=== PATIENT | female | born 1950 | race Caucasian/White ===

== ENCOUNTER 2017-03-02 08:24 | Outpatient (CLI) | payer OTHER ==
--- NOTE | 2017-03-08 10:15 | DIAGNOSTIC IMAGING REPORT ---
PROCEDURE: MG UNILAT SCREEN-RIGHT W/CAD INDICATION: RT SCREENING. Left mastectomy. Aunt with a history of breast cancer. TECHNIQUE: CC and MLO digital views. COMPARISON: Right mammogram 02/29/2016, 02/09/2015 and 01/23/2014. FINDINGS: Computer-aided detection applied. Dense pattern without suspicious mass, architectural distortion or suspicious microcalcifications. Left mastectomy. IMPRESSION: 1. Negative right mammogram. RESULT CODE: 1- Negative. A. A negative report should not delay biopsy if a dominant or clinically suspicious mass is present. 10-15% of cancers are not identified by x-ray. B. A negative report may reinforce clinical impression. C. Adenosis and dense breasts may obscure an underlying neoplasm. D. False positive reports average 6-10%. E.. A yearly screening mammogram is recommended. A reminder letter will be scheduled.
== END 2017-03-02 23:00 ==
LOC: MAM SRH 08:24
DX: Z80.3 Family history of malignant neoplasm of breast (principal); Z12.31 Encounter for screening mammogram for malignant neoplasm of breast; Z85.3 Personal history of malignant neoplasm of breast